=== PATIENT | female | born 1965 | race Hispanic/Latino ===

== ENCOUNTER 2020-06-11 09:57 | Emergency (ER) | payer SELFPAY ==
[~2020-06-11] VITALS: Ht 160 cm; Wt 69.1 kg
--- NOTE | 2020-06-11 10:12 | NUR ---
Used cultural link spinner continuous ID # [id number] Michelle
[2020-06-11] MEDS ORDERED: ONDANSETRON HCL INJ 2MG/ML 2ML 2 MG/ML VIAL IV STA (11:01)
[2020-06-11] MEDS ORDERED: MECLIZINE HCL 12.5 MG TAB PO NR (11:15)
[2020-06-11] MEDS ORDERED: SODIUM CHLORIDE 0.9% 1000ML 1,000 ML IV SCH (11:15)
--- NOTE | 2020-06-11 11:27 | Emergency Department Note ---
History of Present Illnes History of Present Illness Chief Complaint: General Medicine Complaints History of Present Illness This is a 54 year old female who presents with chief complaint of dizziness. She states that her dizziness worse worse with standing and improves with sitting and laying flat. She states that onset was at [employer] while walking in the store. She states that she became nauseated and vomited. She says initially after that she started getting tingling around her lips and fingers. And states that she became began breathing rapidly. And she denies any numbness tingling or weakness of her extremities. She denies any speech problems. She states that the tingling around her lips fingers and rapid breathing has resolved. But states she still has some dizziness and nausea, although is improved. She denies any ringing in her ears or hearing problems. She denies any disequilibrium. She describes her dizziness as lightheadedness. She denies vertigo, however she does have some component of spinning to her complaint of dizziness. She has had no chest pain. She has had no syncope. She has had no lower 70s swelling. She recently traveled from [place] about a week and a half to 2 weeks ago. She was in [place] she saw a physician for a sore throat who put her on Tamiflu. She has had no recent COVID testing. 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 Any updates have been documented here. Past Medical History Recent Fever: Yes Clinical Suspicion of Infectio: Yes Past Medical History: None, Hypertension Past Surgical History: None Social History Smoking Cessation: Never Smoker Any Illegal Drug Use: No Family History Family history of heart diseas: No Review of Systems Review of Systems Constitutional: Denies chills, Denies diaphoresis, Denies fever, Denies malaise, Denies weakness EENTM: Reports throat pain; Denies eye pain, Denies blurred vision, Denies tearing, Denies double vision, Denies ear pain, Denies ear discharge, Denies nose pain, Denies nose congestion, Denies throat swelling, Denies mouth pain (patient had throat pain last week which has resolved) Cardiovascular: Denies chest pain, Denies edema, Denies palpitations, Denies syncope Respiratory: Reports no symptoms Gastrointestinal: Reports nausea, Reports vomiting; Denies diarrhea Genitourinary: Reports no symptoms Musculoskeletal: Reports no symptoms Integumentary: Reports no symptoms Neurological: Reports as per HPI, Reports other (dizziness); Denies headache, Denies numbness, Denies paresthesia, Denies seizure, Denies tingling, Denies weakness Psychological: Reports other Endocrine: Denies excessive sweating, Denies intolerance to cold, Denies increased hunger Hematological/Lymphatic: Denies easy bleeding, Denies easy bruising Physical Exam Related Data Allergies: Coded Allergies: Penicillins (Verified Allergy, Severe, throat swelling, 06/11/20) Physical Exam CONSTITUTIONAL Constitutional: Present well-developed, Present well-nourished HENT HENT: Present normocephalic, Present atraumatic, Present oropharynx clear/moist, Present nose normal, Present other (dry mucous membranes) HENT L/R: Present left TM normal, Present right TM normal, Present left canal normal, Present right canal normal, Present left ext ear normal, Present right ext ear normal EYES Eyes: Reports PERRL, Reports conjunctivae normal, Reports EOM normal NECK Neck: Present ROM normal, Present supple PULMONARY Pulmonary: Present effort normal (no meningeal signs), Present breath sounds normal, Present respiratory distress CARDIOVASCULAR Cardiovascular: Present regular rhythm, Present heart sounds normal, Present normal rate GASTROINTESTINAL Abdominal: Present soft, Present nontender, Present bowel sounds normal GENITOURINARY SKIN MUSCULOSKELETAL NEUROLOGICAL Neurological: Present alert, Present oriented x 3, Present DTRs normal, Present no gross motor or sensory deficits, Present other (are all [id number], normal rapid alternating movement and negative Romberg.); Absent cranial nerve deficit, Absent sensory deficit, Absent abnormal DTRs PSYCHOLOGICAL Psychological: Present mood/affect normal Results Laboratory Laboratory comments Glucose 137, BUN 12, creatinine 0.8, sodium 138, potassium 2.9, chloride 99, bicarbonate 26. Cardisc enzymes are negative. WBC4.4, hemoglobin 13.9 hematocrit 42.5 platelet count 166. Strep swab was negative. Urinalysis was remarkable for small bilirubin and 100 mg/dL of protein and had a normal specific gravity with no nitrates or leukocytes. Imaging Imaging results reviewed: Yes Impressions No intracranial abnormality. Procedures 12 Lead ECG Interpretation ECG Interpretation : ECG: ECG 1 Prior ECG tracings: reviewed Rhythm: sinus rhythm Rate: normal QRS axis: normal ST segments normal: Yes Clinical Impression: normal ECG Additional Comments Normal EKG Assessment & Plan Medical Decision Making MDM Considerations for patient's symptoms included but were not limited to fracture, contusion, sprain, strain. Reassessment Reassessment time: 13:10 Reassessment Symptom-free. Dizziness nausea and all symptoms are resolved. Patient has had no vomiting while in the emergency room. Assessment & Plan Final Impression: (1) Hypovolemia associated with diuresis (2) Dehydration (3) Volume depletion (4) Hypokalemia (5) Dizziness Depart Disposition: HOME, SELF-CARE Medications in the ED Sodium Chloride 1,000 ml @ 125 mls/hr Q8H IV ; Start 06/11/20 at 11:15; Stop 07/11/20 at 11:14; Status UNV Ondansetron HCl 4 mg NOW STAT IV ; Start 06/11/20 at 11:01; Stop 06/11/20 at 11:02; Status UNV Meclizine HCl 12.5 mg ONCE ONCE PO ; Start 06/11/20 at 11:15; Stop 06/11/20 at 11:16; Status UNV MURRAY NEW MD Jun 11, 2020 11:27
[2020-06-11] MEDS ORDERED: MECLIZINE HCL 12.5 MG TAB ONE (11:37)
[2020-06-11] MEDS ORDERED: ONDANSETRON HCL INJ 2MG/ML 2ML 2 MG/ML VIAL ONE (11:37)
[2020-06-11] MEDS ORDERED: SODIUM CHLORIDE 0.9% 1000ML 1,000 ML ONE (11:37)
--- NOTE | 2020-06-11 12:20 | Diagnostic Imaging Report ---
Examination: CT head without contrast Clinical Indication: Dizziness. Technique: Transaxial noncontrast images from the skull base through the vertex were obtained. Sagittal and coronal reformatted images were done. Dose modulation, iterative reconstruction, and/or weight based adjustment of the mA/kV was utilized to reduce the radiation dose to as low as reasonably achievable. Comparison: None. Findings: Scalp: No abnormalities. Bones: Intact. No fractures. No blastic or lytic lesions. Brain sulci: Appropriate for patient's age. Ventricles: Normal in size and configuration. No hydrocephalus. Extra-axial space: No abnormalities. Parenchyma: No abnormal densities. No masses, hemorrhage, or acute or chronic cortical based vascular insults. Suprasellar region: No abnormalities. Craniocervical junction: The foramen magnum is patent. No Chiari one malformation. Impression: No intracranial abnormality. Signed by: Dr. Temi Lucio M.D. on 06/11/2020 12:16 PM
[2020-06-11] MEDS ORDERED: POTASSIUM CHLORIDE 20 MEQ TAB CR PO ONE (13:09)
[2020-06-11] MEDS ORDERED: POTASSIUM CHLORIDE 20 MEQ TAB CR PO NR (13:15)
[2020-06-11 13:36] VITALS: BP 130/69
== END 2020-06-11 13:27 | disposition home or self-care (01) ==
LOC: FSED 10:21
DX: E86.1 Hypovolemia (principal); R19.7 Diarrhea, unspecified; E86.0 Dehydration; E87.6 Hypokalemia; R42 Dizziness and giddiness; I10 Essential (primary) hypertension
CPT/HCPCS: 70450; 80048; 81003; 82553; 83518; 84484; 85025; 93005; 96374; 99284; J2405; J7030; J8597